=== PATIENT | female | born 2000 | race Caucasian/White ===

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

== ENCOUNTER 2024-09-26 06:07 | Inpatient (IN) ==
[~2024-09-26 06:07] MED LIST changes: -AMPICILLIN VIAL 2 GM ONE; -D5 1/2 NS 1000 ML 1,000 ML IV ONE; -D5 1/2 NS 1000ML W PITOCIN 20 U/L 1,000 ML IV ONE; -D5LR 1000ML W PITOCIN 10 U/L 1,000 ML IV ONE; -NS 100 ML IV 100 ML IV ONE; -PITOCIN ONE; +XYLOCAINE 2 % (PLAIN) ONE
[2024-09-26] MEDS: ZOFRAN INJ 4 MG VIAL ONE (06:33)
[2024-09-26] MEDS: DIPRIVAN VIAL 20 ML ONE (06:33)
[2024-09-26] MEDS: REGLAN INJ 10 MG VIAL ONE (06:33)
[2024-09-26] MEDS: OFIRMEV IV 1000 MG VIAL 1,000 MG/100 ML VIAL IV ONE (06:33)
[2024-09-26] MEDS: TORADOL 30 MG VIAL ONE (06:33)
[2024-09-26] MEDS: MARCAINE SPINAL ONE (06:33)
[2024-09-26] MEDS: ANCEF VIAL 1 GRAM ONE (06:33)
[2024-09-26] MEDS: PITOCIN ONE (06:34)
[2024-09-26] MEDS: LR 1,000 ML IV 1,000 ML IV ONE ×2 (06:34→06:39)
[2024-09-26] MEDS: PEPCID 20 MG VIAL ONE (06:40)
[2024-09-26] MEDS: LR 1,000 ML IV 1,000 ML IV SCH (06:40)
[2024-09-26] MEDS: LR 1,000 ML IV 2,000 ML IV PRN (06:45)
[2024-09-26] MEDS: ZOFRAN INJ 4 MG VIAL IVP PRN (06:55)
[2024-09-26] MEDS: REGLAN INJ 10 MG VIAL IVP PRN (06:55)
[2024-09-26] MEDS: PEPCID 20 MG VIAL IVP PRN (06:55)
[2024-09-26] MEDS: NS 100 ML IV 100 ML ONE (07:07)
[2024-09-26] MEDS: ANCEF VIAL 1 GRAM IVP ONE (07:07)
[2024-09-26] MEDS: ANCEF VIAL 1 GRAM IV PRN (07:20)
[2024-09-26] MEDS: KETAMINE HCL ONE (07:33)
[2024-09-26] MEDS ORDERED: DILAUDID INJ IVP PRN (07:43)
[2024-09-26] MEDS ORDERED: BARHEMSYS INJ IVP PRN (07:43)
[2024-09-26] MEDS ORDERED: BENADRYL INJ 50 MG VIAL IVP PRN ×2 (07:43→09:13)
[2024-09-26] MEDS ORDERED: ZOFRAN INJ 4 MG VIAL IVP PRN ×2 (07:43→09:13)
[2024-09-26] MEDS: TORADOL 30 MG VIAL IVP PRN ×2 (07:55→21:35)
[2024-09-26] MEDS: XYLOCAINE 2 % (PLAIN) INJ PRN (08:03)
[2024-09-26] MEDS: DIPRIVAN VIAL 150 ML IVP PRN (08:04)
[2024-09-26] MEDS: KETAMINE HCL IV PRN (08:04)
[2024-09-26] MEDS: OFIRMEV IV 1000 MG VIAL 1,000 MG/100 ML VIAL IV PRN (08:08)
[2024-09-26] MEDS: PITOCIN IVP PRN (08:20)
[2024-09-26] MEDS ORDERED: ADACEL or BOOSTRIX TDaP VACCINE IM ONE (09:13)
[2024-09-26] MEDS ORDERED: REGLAN INJ 10 MG VIAL IVP PRN (09:13)
[2024-09-26] MEDS: PRENATAL PLUS PO SCH (13:13)
[2024-09-26] MEDS: MOTRIN TAB 800 MG PO PRN (13:17)
[2024-09-26] MEDS: PERCOCET TAB 5/325 MG PO PRN ×2 (15:15→19:23)
[2024-09-26] MEDS: OXYTOCIN 20 UNIT/1,000 ML-NS 20 UNIT/1,000 ML PLAST..BAG IV SCH (18:37)
[2024-09-27] MEDS: MYLICON TAB 80 MG CHEW PO PRN (04:47)
[2024-09-27] MEDS ORDERED: MOTRIN TAB 800 MG PO PRN (07:22)
[2024-09-27] MEDS: COLACE CAP 100 MG PO SCH (08:34)
[2024-09-27] MEDS: BACTROBAN TOPICAL OINT TOP SCH (13:52)
[2024-09-28 07:50] VITALS: BP 109/65; PULSE 74; RESP 21; TEMP 98.5; O2SAT 99
== END 2024-09-28 11:30 | disposition home or self-care (01) | DRG 787 ==
LOC: LD 06:07 → MED/SURG 09:11
PROVIDERS: ADMIT Specialist; ATTEND Specialist
DX: N85.8 Other specified noninflammatory disorders of uterus; F12.90 Cannabis use, unspecified, uncomplicated; Z37.0 Single live birth; R51.9 Headache, unspecified; O26.893 Other specified pregnancy related conditions, third trimester; O34.211 Maternal care for low transverse scar from previous cesarean delivery; Z01.812 Encounter for preprocedural laboratory examination; O99.323 Drug use complicating pregnancy, third trimester; F11.90 Opioid use, unspecified, uncomplicated; Z3A.38 38 weeks gestation of pregnancy